=== PATIENT | female | born 1985 | race African-American/Black ===

== ENCOUNTER 2018-09-12 19:09 | Observation (INO) | payer MEDICAID ==
[~2018-09-12] VITALS: Ht 172.7 cm; Wt 155.6 kg
[2018-09-12] MEDS ORDERED: PNV1TABL50 MT (19:24)
== END 2018-09-12 22:35 | disposition home or self-care (01) ==
LOC: 8 EST LDRP 19:09
PROVIDERS: ADMIT Obstetrics & Gynecology; ATTEND Obstetrics & Gynecology
DX: Z34.93 Encounter for supervision of normal pregnancy, unspecified, third trimester (principal); Z3A.39 39 weeks gestation of pregnancy
CPT/HCPCS: 76805; 76818; 82962; 99281; G0378